=== PATIENT | female | born 1960 | race Caucasian/White ===

== ENCOUNTER 2017-05-04 09:53 | Emergency (ER) | payer SELFPAY ==
[~2017-05-04] VITALS: Ht 172.7 cm; Wt 105.0 kg
[~2017-05-04 09:53] MED LIST: CYCL-36 PO; DICL50TA3 PO; HYDR-3533 PO; IBUP600T26 PO
[2017-05-04 10:15] VITALS: BP 158/86; PULSE 82; RESP 18; TEMP 98.1; O2SAT 96
[2017-05-04] MEDS ORDERED: CYCL1TAB29 PO (10:15)
[2017-05-04] MEDS ORDERED: HYDR-3533 PO ×2 (10:15→10:41)
[2017-05-04] MEDS ORDERED: MEDI220T PO (10:15)
--- NOTE | 2017-05-04 10:46 | PD ---
HPI Chief Complaint: Back/ Neck Pain or Injury Time Seen by Provider: 10:38 Travel History International Travel<30 days: No Contact w/Intl Traveler<30days: No Traveled to known affect area: No History of Present Illness HPI 57-year-old female patient with history of chronic back pains and sciatica, presents to the ER today for several days history of lower back pains which she currently rates at an 8 out of 10 that started gradually. 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 She has been having bilateral feet swelling as well from this. She denies any fevers, incontinence, new injuries, weakness or numbness in her leg, or any other symptoms. She denies any recent travel. Patient denies any IV drug use. Modifying Factors: None Associated Signs & Symptoms: Bilateral feet swelling, lower back pain Risk Factors: Strenuous activity more than the usual work PFSH Past Medical History Anxiety: Yes Cardiovascular Problems: Yes (HYPOTENSION) Cerebrovascular Accident: Yes (POSSIBLE TIA PER PT 2009) Diminished Hearing: No Genitourinary: Yes (RENAL TUMOR (BENIGN)) Headaches: Yes Musculoskeletal: Yes (sciatica) Immunizations Current: Yes Tetanus Vaccination: < 5 Years Influenza Vaccination: No ?: Not Menopausal: Yes : 5 Para: 3 Miscarriage: 1 : 1 Tubal Ligation: Yes Past Surgical History Gynecologic Surgery: Yes (TUBAL LIGATION) Other Surgery: Yes (TUMOR REMOVED FROM LUE - BENIGN) Social History Alcohol Use: No Tobacco Use: Yes (1/2 PPD) Substance Use: No Allergies-Medications (Allergen,Severity, Reaction): Coded Allergies: iodine (Unverified Allergy, Severe, Hives, 05/04/17) potassium iodide (Unverified Allergy, Severe, Hives, 05/04/17) povidone-iodine (Unverified Allergy, Severe, Hives, 05/04/17) sodium iodide (Unverified Allergy, Severe, Hives, 05/04/17) sodium iodide (Unverified Allergy, Severe, Hives, 05/04/17) acetaminophen (Unverified Adverse Reaction, Severe, Headache, 05/04/17) codeine (Unverified Adverse Reaction, Severe, N/V, 05/04/17) hydrocodone (Unverified Adverse Reaction, Severe, Headache, 05/04/17) Reported Meds & Prescriptions Reported Meds & Active Scripts Active Reported Flexeril (Cyclobenzaprine HCl) 10 Mg Tab 10 Mg PO TID PRN Lortab (Hydrocodone-Acetaminophen) 5-325 Mg Tab 0.5 Tab PO BID Naproxen Sodium 220 Mg Tab 375 Mg PO DAILY Review of Systems Except as stated in HPI: all other systems reviewed are Neg Physical Exam Narrative GENERAL: Well-developed pleasant white female patient currently in mild distress. Awake and oriented 3. SKIN: Focused skin assessment warm/dry. HEAD: Atraumatic. Normocephalic. EYES: Pupils equal and round. No scleral icterus. No injection or drainage. ENT: No nasal bleeding or discharge. Mucous membranes pink and moist. NECK: Trachea midline. No JVD. CARDIOVASCULAR: Regular rate and rhythm. No murmur appreciated. RESPIRATORY: No accessory muscle use. Clear to auscultation. Breath sounds equal bilaterally. GASTROINTESTINAL: Abdomen soft, non-tender, nondistended. Hepatic and splenic margins not palpable. MUSCULOSKELETAL: No obvious deformities. No clubbing. No cyanosis. No edema. BACK: No CVA tenderness. No rash. No point tenderness on palpation of the spine. She has generalized tenderness over the lower back area. NEUROLOGICAL: Awake and alert. No obvious cranial nerve deficits. Motor grossly within normal limits. Normal speech. PSYCHIATRIC: Appropriate mood and affect; insight and judgment normal. Data Data Last Documented VS Vital Signs Date Time Temp Pulse Resp B/P (MAP) Pulse Ox O2 Delivery O2 Flow Rate FiO2 05/04/17 10:15 98.1 82 18 158/86 (110) 96 MDM Medical Decision Making Medical Screen Exam Complete: Yes Emergency Medical Condition: Yes Medical Record Reviewed: Yes Differential Diagnosis Lower back pain: lumbago versus back strain versus muscle spasms versus acute on chronic back pain Narrative Course I suspect that the current symptoms are secondary to a worsening of chronic back pain due to the increased activity. Patient admits she has been on her feet a lot. At this point, my plan would be to give her symptomatic relief or pain and I will also give her one week of decreased lifting and prolonged standing since I suspect that this is aggravating her back issues. Return for any worsening in symptoms as needed. The plan has been discussed with her and she states understanding. Diagnosis Primary Impression: Lower back pain Med/Other Pt SpecificInfo: Prescription(s) given Scripts Hydrocodone-Acetaminophen (Lortab) 5-325 Mg Tab 1 TAB PO Q6H Y for PAIN, #10 TAB 0 Refills Prov: Melva Suazo MD 05/04/17 Disposition: 01 DISCHARGE HOME Condition: Stable Melva Suazo MD May 04, 2017 10:46
== END 2017-05-04 11:06 | disposition home or self-care (01) ==
LOC: PHED 09:53
DX: M54.5 Low back pain (principal); M79.89 Other specified soft tissue disorders; G89.29 Other chronic pain
CPT/HCPCS: 99283

== ENCOUNTER 2017-05-27 13:52 | Emergency (ER) | payer OTHER ==
[~2017-05-27 13:52] MED LIST changes: -CYCL-36 PO; +CYCL1TAB29 PO; -DICL50TA3 PO; -IBUP600T26 PO; +MEDI220T PO
[2017-05-27 14:08] VITALS: BP 177/73; PULSE 94; RESP 20; TEMP 98.5
[2017-05-27] MEDS ORDERED: LEDI1TAB (14:32)
--- NOTE | 2017-05-27 15:42 | RADRPT ---
EXAM DATE/TIME: 05/27/2017 15:16 [facility] COMPARISON: No previous studies available for comparison. INDICATIONS : Lifting heavy materials at work and hurt back. MEDICAL HISTORY : Hypotension, prior history of maxilla fracture SURGICAL HISTORY : None. ENCOUNTER: Initial ACUITY: 1 day PAIN SCORE: 10/10 LOCATION: Bilateral Lower back FINDINGS: Two view examination was performed. There are five non-rib bearing vertebral bodies. There is a pro nounced leftward mid lumbar scoliosis. There is grade 1 almost grade 2 anterior spondylolisthesis of L5 on S1. No compression fracture is seen. There is atherosclerotic disease. The sacrum is intact.. The disc spaces are maintained. The pedicles are intact. Bony mineralization is normal. No fractur e is identified. CONCLUSION: Probable pars defect at L5 with grade 1 almost grade 2 anterior spondylolisthesis. No acute injury. Edis Jo MD on May 27, 2017 at 15:40 Board Certified Radiologist. This report was verified electronically.
--- NOTE | 2017-05-27 15:42 | PD ---
HPI Chief Complaint: Musculoskeletal Complaint Time Seen by Provider: 14:50 Travel History International Travel<30 days: No Contact w/Intl Traveler<30days: No Traveled to known affect area: No History of Present Illness HPI 57-year-old female presents to the emergency room for evaluation of acute on chronic low back pain. Patient injured her back one month ago at work. States she was on a ladder reaching overhead, stocking heavy boxes when she felt a sharp, severe full in her right lower back. Six days after injury, she came to the emergency room and was diagnosed with low back strain. She was instructed to follow up with her worker's comp physician if symptoms persisted for outpatient imaging. Patient states her work never provided her a Worker's Comp physician so she had to get a b2b sales professional involved. States they still have not given her any when to follow-up with. Pain is still severe and makes it difficult for her to walk. She has been taking her prescribed Lortab without significant relief in symptoms. She reports paresthesias in bilateral lower extremities. Denies loss of bowel or bladder control or saddle anesthesia. Denies IV drug use. PFSH Past Medical History Anxiety: Yes Cardiovascular Problems: Yes (HYPOTENSION) Cerebrovascular Accident: Yes (POSSIBLE TIA PER PT 2009) Diminished Hearing: No Genitourinary: Yes (RENAL TUMOR (BENIGN)) Headaches: Yes Hepatitis: Yes (C) Musculoskeletal: Yes (sciatica) Immunizations Current: Yes Menopausal: Yes : 5 Para: 3 Miscarriage: 1 : 1 Tubal Ligation: Yes Past Surgical History Gynecologic Surgery: Yes (TUBAL LIGATION) Other Surgery: Yes (TUMOR REMOVED FROM LUE - BENIGN) Social History Alcohol Use: No Tobacco Use: Yes (1/2 PPD) Substance Use: No Allergies-Medications (Allergen,Severity, Reaction): Coded Allergies: iodine (Unverified Allergy, Severe, Hives, 05/27/17) potassium iodide (Unverified Allergy, Severe, Hives, 05/27/17) povidone-iodine (Unverified Allergy, Severe, Hives, 05/27/17) sodium iodide (Unverified Allergy, Severe, Hives, 05/27/17) sodium iodide (Unverified Allergy, Severe, Hives, 05/27/17) acetaminophen (Unverified Adverse Reaction, Severe, Headache, 05/27/17) codeine (Unverified Adverse Reaction, Severe, N/V, 05/27/17) hydrocodone (Unverified Adverse Reaction, Severe, Headache, 05/27/17) Reported Meds & Prescriptions Reported Meds & Active Scripts Active Lortab (Hydrocodone-Acetaminophen) 5-325 Mg Tab 1 Tab PO Q6H PRN Reported Flexeril (Cyclobenzaprine HCl) 10 Mg Tab 10 Mg PO TID PRN Lortab (Hydrocodone-Acetaminophen) 5-325 Mg Tab 0.5 Tab PO BID Naproxen Sodium 220 Mg Tab 375 Mg PO DAILY Harvoni 90-400 mg Tablet (Ledipasvir/Sofosbuvir) 90 Mg-400 Mg Tablet Review of Systems Except as stated in HPI: all other systems reviewed are Neg Physical Exam Narrative GENERAL: Well-nourished, well-developed female in no acute distress. Afebrile. Ambulatory. SKIN: Focused skin assessment warm/dry. No erythema or ecchymosis noted. HEAD: Normocephalic. EYES: No scleral icterus. No injection or drainage. NECK: Supple, trachea midline. No JVD or lymphadenopathy. CARDIOVASCULAR: Regular rate and rhythm without murmurs, gallops, or rubs. RESPIRATORY: Breath sounds equal bilaterally. No accessory muscle use. BACK: Midline tenderness of the lumbar spine. No obvious deformity. No CVA tenderness. Data Data Last Documented VS Vital Signs Date Time Temp Pulse Resp B/P (MAP) Pulse Ox O2 Delivery O2 Flow Rate FiO2 05/27/17 14:08 98.5 94 20 177/73 (107) Orders Orders Spine, Lumbar - Ltd (Ap & Lat) (05/27/17 ) [facility] Medical Decision Making Medical Screen Exam Complete: Yes Emergency Medical Condition: Yes Medical Record Reviewed: Yes Differential Diagnosis Low back strain, fracture, contusion, spasm Narrative Course 57-year-old female with history of chronic low back pain presents to the emergency room for evaluation of acute exacerbation. States it started one month ago while at work. She to the emergency room and was instructed to follow up with the worker's comp physician but has not been provided with 1. No focal neurologic deficits. No significant midline tenderness. No obvious deformity. Patient is mobile and ambulatory without significant difficulty. She is seen ambulating in the emergency room. X-rays shows pars defect with spondylolisthesis grade 1. Patient was informed that she will need to follow up with her primary care physician or establish with her Worker's Comp physician for chronic management of her back pain and outpatient imaging. She was told to take ibuprofen for pain. She understands and agrees to plan. Diagnosis Primary Impression: Spondylolisthesis Qualified Codes: M43.16 - Spondylolisthesis, lumbar region Referrals: [facility] Primary Care Physician Additional Instructions: Rest and drink plenty of fluids. Take ibuprofen with food as directed, as needed for pain. Apply ice to the affected area for 20 minutes at a time, as needed for pain and swelling. Follow-up with a primary care physician. Return to the emergency room for worsening symptoms. Disposition: 01 DISCHARGE HOME Condition: Stable Denise Rosenberg May 27, 2017 15:42
[2017-05-27] MEDS ORDERED: IBUP-232 PO (15:59)
== END 2017-05-27 16:05 | disposition home or self-care (01) ==
LOC: PHEFT 13:52
DX: M43.16 Spondylolisthesis, lumbar region (principal); G89.29 Other chronic pain; F17.200 Nicotine dependence, unspecified, uncomplicated
CPT/HCPCS: 72100; 99283